=== PATIENT | female | born 1960 | race Two or more races ===

== ENCOUNTER 2018-02-26 22:47 | Emergency (ER) | payer SELFPAY ==
[~2018-02-26] VITALS: Ht 170.2 cm; Wt 65.8 kg
--- NOTE | 2018-02-26 22:58 | NUR ---
BIBRA 88 FOND IN ALLEY BY ADRIANA PT NOTED REFUSING TO TALK, REFUSED VS/ ACCUCHECK ON FIELD. PT REFUSES TO ANSWER QUESTIONS AT THIS TIME. PT REFUSE V/S AT THIS TIME. RR EVEN AND UNLABORED. NO SOB NOTED. PT NOT DIAPHORETIC AT THIS TIME. STOCK FEEDER CELESTINE AT BEDSIDE SPEAKING TO PT, PT ADMITS TO DRINKING.
--- NOTE | 2018-02-26 23:05 | NUR ---
PT NOTED TALKING, HOWEVER REFUSED SPECIFIC QUESTIONS AT THIS TIME. RADIOLOGICAL TECHNOLOGIST MEÑOSI MADE AWARE
[2018-02-26] MEDS ORDERED: HALOPERIDOL LACTATE INJ 5 MG/ML VIAL ONE (23:11)
[2018-02-26] MEDS ORDERED: diphenhydrAMINE HCL 50 MG/ML VIAL ONE (23:11)
[2018-02-26] MEDS ORDERED: LORAZEPAM INJ 2 MG/ML VIAL ONE (23:12)
[2018-02-26] MEDS ORDERED: LORAZEPAM INJ 2 MG/ML VIAL IM ONE (23:30)
[2018-02-26] MEDS ORDERED: diphenhydrAMINE HCL 50 MG/ML VIAL IM ONE (23:30)
[2018-02-26] MEDS ORDERED: HALOPERIDOL LACTATE INJ 5 MG/ML VIAL IM ONE (23:30)
--- NOTE | 2018-02-26 23:55 | NUR ---
PT TO CT.
--- NOTE | 2018-02-27 00:08 | NUR ---
PT RETURNED FROM CT.
[2018-02-27 00:22] LABS: BASOPHILS # (AUTO) 0.1 /CMM (0.0-0.2); BASOPHILS % (AUTO) 0.9 % (0.0-2.0); EOSINOPHILS % (AUTO) 1.8 % (0.0-6.0); HEMATOCRIT 39 % (33-45); HEMOGLOBIN 12.9 g/dL (11.5-14.8); LYMPHOCYTES # (AUTO) 2.5 /CMM (0.8-4.8); MEAN CORPUSCULAR HGB CONC 33 g/dl (31.0-36.0); MEAN CORPUSCULAR VOLUME 100 fL (82-100); MONOCYTES # (AUTO) 0.4 /CMM (0.1-1.30); NEUTROPHILS # (AUTO) 2.4 /CMM (1.8-8.9); NEUTROPHILS % (AUTO) 44.3 % (43.0-81.0); PLATELET COUNT (AUTO) 234 /CMM (150-450); RDW COEFFICIENT OF VARIATION 15.1 (11.5-15.0); WHITE BLOOD COUNT (AUTO) 5.4 K/uL (4.3-11.0)
--- NOTE | 2018-02-27 00:24 | NUR ---
URINE COLLECTED VIA STRAIGHT CATH PER MD, CALLED [facility]OP[facility] CONSULTANT.
[2018-02-27 00:33] LABS: CALCIUM, SERUM 8.8 mg/dL (8.5-10.1); CREATININE 0.7 mg/dL (0.6-1.3); POTASSIUM 3.3 mmol/L (3.5-5.1)
[2018-02-27 00:44] LABS: ALBUMIN 3.9 g/dL (3.4-5.0); BILIRUBIN,DIRECT 0.1 mg/dL (0.0-0.2); BILIRUBIN,TOTAL 0.2 mg/dL (0.2-1.0); TOTAL PROTEIN, SERUM 7.1 g/dL (6.4-8.2)
[2018-02-27 00:45] LABS: SALICYLATE 1.3 mg/dL (2.8-20.0)
[2018-02-27 01:41] LABS: APPEARANCE,URINE SL CLOUDY (CLEAR); BILIRUBIN,URINE NEGATIVE (NEGATIVE); BLOOD, URINE TRACE Ery/uL (NEGATIVE); COLOR,URINE OTHER (YELLOW); KETONES,URINE NEGATIVE (NEGATIVE); LEUKOCYTE ESTERASE ,URINE TRACE (NEGATIVE); NITRITE, URINE NEGATIVE (NEGATIVE); PH,URINE 5.5 (5.0-8.0); PROTEIN,URINE NEGATIVE (NEGATIVE); UGLUCOSE NEGATIVE (NEGATIVE); UROBILINOGEN,URINE 0.2 EU/dL (0.2)
[2018-02-27 01:54] LABS: BACTERIA,URINE Few /HPF (None Seen); RBC,URINE 0-2 /HPF (0-2); SQUAMOUS EPITHELIAL CELL,UR Few /HPF (None Seen); URINE AMORPHOUS URATE Moderate /HPF (None Seen); WBC,URINE 0-2 /HPF (0-3)
--- NOTE | 2018-02-27 04:23 | NUR ---
Juanito terrazas in [facility] - 02/27/18 at 0437 by SHARAD PT AOX3. NAME MICHELINE ANGELES 60.
--- NOTE | 2018-02-27 04:23 | NUR ---
Note undone in EDM - 02/27/18 at 0440 by SHARAD PT AOX3. PT STATES HER NAME IS MICHELINE ANGELES RAJANI 60. ADMITS TO ETOH. SAIDA SI/HI. PT NOTED AMBULATORY WITH STEADY GAIT.
--- NOTE | 2018-02-27 04:23 | NUR ---
PT AOX3. PT STATES HER NAME IS MICHELINE GERARD 60. ADMITS TO ETOH. DENIES SI/HI. PT NOTED AMBULATORY WITH STEADY GAIT.
--- NOTE | 2018-02-27 06:53 | NUR ---
IV removed. Catheter intact and site benign. Pressure and 4x4 applied to site. No bleeding noted. Patient discharged to home in stable condition. Written and verbal after care instructions given. Patient verbalizes understanding of instruction. ambulatory with a steady gait. PT WITH ALL PERSONAL BELONGINGS.
[2018-02-27 06:54] VITALS: BP 110/62
== END 2018-02-27 06:55 | disposition home or self-care (01) ==
LOC: EDBD 22:49 → ER 22:49
DX: R40.4 Transient alteration of awareness (principal); F10.129 Alcohol abuse with intoxication, unspecified
CPT/HCPCS: 36415; 51701; 70450; 80048; 80076; 80305; 80329; 81001; 82962; 85025; 96372; 99285; G0480 ×2; J1200; J1630; J2060; 81000-TC; A4606; Z7610